=== PATIENT | male | born 2005 | race African-American/Black ===

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

== ENCOUNTER 2024-08-16 21:09 | Emergency (ER) | payer SELFPAY | END 2024-08-16 22:30 | disposition home or self-care (01) | LOC: ERS 21:09 | DX: D10.1 Benign neoplasm of tongue (principal) | CPT/HCPCS: 99282 ==